=== PATIENT | male | born 1945 | race Caucasian/White ===

== ENCOUNTER 2019-05-08 05:34 | Day surgery (SDC) | payer MEDICARE, OTHER ==
[~2019-05-08] VITALS: Ht 182.9 cm; Wt 109.1 kg
[2019-05-08] MEDS ORDERED: RINGERS SOLUTION,LACTATED 1,000 ML IV ONE ×3 (05:35→07:09)
[2019-05-08] MEDS ORDERED: ONDANSETRON HCL 4 MG/2 ML VIAL IVP ONE (05:35)
[2019-05-08] MEDS ORDERED: FentaNYL CITRATE-PF 100 MCG/2 ML VIAL IVP ONE (05:35)
[2019-05-08] MEDS ORDERED: PROPOFOL 1% 20 ML VIAL IVP ONE (05:35)
[2019-05-08] MEDS ORDERED: SUCCINYLCHOLINE CHLORIDE 20 MG/ML 10 ML VIAL IVP ONE (05:35)
[2019-05-08] MEDS ORDERED: CLINDAMYCIN 900 MG/D5% WATER 50 ML IV ONE (06:00)
[2019-05-08] MEDS ORDERED: ATOR40TA28 PO (06:08)
[2019-05-08] MEDS ORDERED: LOSA50TA64 PO (06:08)
[2019-05-08] MEDS ORDERED: MULT1CAP32 PO (06:08)
[2019-05-08] MEDS ORDERED: SITA1TBM4 PO (06:08)
[2019-05-08] MEDS ORDERED: DOCU-275 PO (06:08)
[2019-05-08] MEDS ORDERED: INSU3INS5 SQ ×2 (06:08)
[2019-05-08] MEDS ORDERED: EMPA10TA PO (06:08)
[2019-05-08] MEDS ORDERED: APIX5TAB PO (06:08)
[2019-05-08] MEDS ORDERED: METO-558 PO (06:08)
[2019-05-08 06:39] LABS: GLUCOMETER DEV NAME(LOC) SDS.; GLUCOSE,POINT OF CARE 107 MG/DL (70-110)
[2019-05-08] MEDS ORDERED: LIDOCAINE/PF 2% 5 ML VIAL ONE (07:08)
[2019-05-08] MEDS ORDERED: BUPIVACAINE HCL/PF 0.5% 30 ML VIAL ONE (07:08)
[2019-05-08] MEDS ORDERED: DEXAMETHASONE SOD PHOS 4 MG/ML VIAL ONE (07:09)
[2019-05-08] MEDS ORDERED: BUPIVACAINE LIPOSOME/PF 1.3%-13.3MG/ML SUSPENSION 20 ML VIAL INJ STA (07:28)
[2019-05-08] MEDS ORDERED: FentaNYL CITRATE-PF 100 MCG/2 ML VIAL IVP PRN (07:30)
[2019-05-08] MEDS ORDERED: HYDROmorphone 2 MG/ML SYRINGE IVP PRN (07:30)
[2019-05-08] MEDS ORDERED: MEPERIDINE-PF 25 MG/ML VIAL IVP PRN (07:30)
[2019-05-08] MEDS ORDERED: VANCOMYCIN HCL 1 GM/VIAL ONE (09:38)
== END 2019-05-08 12:25 | disposition home or self-care (01) ==
LOC: SURGERY 05:34
PROVIDERS: ATTEND Podiatrist Foot & Ankle Surgery
DX: M20.5X1 Other deformities of toe(s) (acquired), right foot (principal); L97.519 Non-pressure chronic ulcer of other part of right foot with unspecified severity; I48.91 Unspecified atrial fibrillation; I10 Essential (primary) hypertension; E78.5 Hyperlipidemia, unspecified; E11.9 Type 2 diabetes mellitus without complications; Z79.4 Long term (current) use of insulin; E66.9 Obesity, unspecified; Z68.32 Body mass index [BMI] 32.0-32.9, adult; Z98.890 Other specified postprocedural states; Z87.891 Personal history of nicotine dependence
CPT/HCPCS: 28299; 27687; 28234; 73630; 82962; C1713; C9290; J0330; J2405; J2704; J3010; J3370; J3490 ×3; J7120; J1100